=== PATIENT | male | born 2000 | race Caucasian/White ===

== ENCOUNTER 2021-03-09 00:19 | Emergency (ER) | payer SELFPAY ==
[2021-03-09 00:19] VITALS: BP 127/77; PULSE 108; RESP 18; TEMP 36.2; O2SAT 97
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
--- NOTE | 2021-03-09 01:54 | DI.VRAD_ITS ---
PROCEDURE INFORMATION: Exam: XR Right Forearm Exam date and time: 03/09/2021 12:46 AM Age: 20 years old Clinical indication: Other: Trauma TECHNIQUE: Imaging protocol: XR Right forearm. Views: 2 views. COMPARISON: No relevant prior studies available. FINDINGS: Bones/joints: Distal 3rd ulnar fracture involving the diaphysis and ulnar styloid fracture noted. The radius is intact Soft tissues: Swelling over the distal ulna IMPRESSION: Distal ulnar fractures as described. No dislocation Dictated and Authenticated by: Angelo Amanda MD. Ordering:HEVER Lopez MD
[2021-03-09] MEDS: ceFAZolin 1 GM/50 ML BAG IVPB (02:20)
[2021-03-09 02:57] VITALS: BP 127/77; PULSE 108; RESP 18; TEMP 36.2; O2SAT 97
== END 2021-03-09 03:35 | disposition home or self-care (01) ==
PROVIDERS: Emergency Provider Emergency Medicine
DX: S52.691A Other fracture of lower end of right ulna, initial encounter for closed fracture (principal); S01.01XA Laceration without foreign body of scalp, initial encounter; S51.811A Laceration without foreign body of right forearm, initial encounter; Y08.89XA Assault by other specified means, initial encounter
CPT/HCPCS: 12002; 29125; 90471; 96365; 96375; 99284; 70450; 70486; 72125; 73090; 73110; J0690

== ENCOUNTER 2021-03-13 09:37 | Outpatient (CLI) | payer SELFPAY ==
--- NOTE | 2021-03-13 09:00 | DI.RAD_ITS ---
Exam(s) XR WRIST RT LIMITED EXAM: XR WRIST RT LIMITED CLINICAL HISTORY: RIGHT ULNA FRACTURE. TECHNIQUE: 2D digital imaging was performed of the right wrist. Two views were obtained. PA and la teral views were obtained. COMPARISON: CR,XR XR WRIST RT COMPLETE from 03/09/2021 FINDINGS: BONES: There has been no change in alignment of the distal right ulnar fractures. The patient's wris t is in a cast. No bony destructive lesion is seen. JOINTS: The carpal bones are normally aligned. SOFT TISSUE: Normal. IMPRESSION: Stable right ulnar fractures. DATA REPOSITORY: RADIATION DOSE DELIVERED:
== END 2021-03-13 09:38 | disposition home or self-care (01) ==
LOC: DIORS 09:37
PROVIDERS: Visit Provider Physician Assistant
DX: S52.614A Nondisplaced fracture of right ulna styloid process, initial encounter for closed fracture; S52.691A Other fracture of lower end of right ulna, initial encounter for closed fracture
CPT/HCPCS: 73100

== ENCOUNTER 2021-03-19 11:55 | Emergency (ER) | payer SELFPAY ==
[2021-03-19 12:00] VITALS: BP 135/90; PULSE 103; RESP 16; O2SAT 100
--- NOTE | 2021-03-19 12:28 | ED.GENADUL_ITS ---
Discharge Plan Disposition Patient Disposition: HOME Condition: Good Discharge Details Clinical Impression: Encounter for staple removal Primary Care Provider: None,None ED Provider: Jose Webb Home Meds and New Rx's Prescriptions: No Action (DME) Freestyle [employer] Test Strips 1 EACH strip 1 ea AD PRN Qty: 1 RF: 12 Lantus Solostar U-100 Insulin 100 UNIT/1 ML insulin pen 20 unit SQ DAILY Qty: 1 RF: 0 NOVOLOG 100 UNIT/1 ML VIAL SQ DAILY Qty: 1 RF: 12 cephalexin 500 mg capsule 500 mg PO QID Qty: 20 RF: 0 Discharge Instructions Instructions: Acute Wound Care (ED) Additional Instructions: Please watch for any signs of infection and return immediately if they occur. Otherwise you may gently wash the wounds with mild soap and water. Discharge Data Discharge Date/Time-TO BE ENTERED AT DEPARTURE: 03/19/21 12:48 Medical Decision Making Patient presenting for staple removal. Patient states his huan have been healing well with no signs of infection, no further headache, no other complaints. Wound does not appear to be infected or dehisced and patient is otherwise stable. [place] removed by nursing staff and patient educated on acute wound care along with return and follow-up precautions as needed. HPI General Mode of arrival: ambulatory . Date/Time Provider Initiated Documentation: 03/19/21 12:01 . Limitations to Documentation: no limitations . Information obtained by: patient . History of Present Illness 20 year old M presents to the emergency department with the chief complaint of Staple Removal , Patient started experiencing this day(s) (10) Patient notes no other symptoms.. Patient did receive the following treatments prior to arrival, none Related Data Home Medications Medication Instructions Recorded Confirmed Freestyle [employer] Test Strips #1 strip 08/02/12 03/13/21 Lantus Solostar U-100 Insulin 20 unit SQ DAILY #1 pen 08/02/12 03/19/21 Novolog unit SQ DAILY #1 pen 08/02/12 03/13/21 cephalexin 500 mg PO QID #20 cap 03/09/21 03/19/21 Previous Rx's Medication Instructions Recorded cephalexin 500 mg PO QID #20 cap 03/09/21 Allergies Allergy/AdvReac Type Severity Reaction Status Date / Time No Known Allergies Allergy Unverified 03/19/21 12:04 General Stated Complaint: SutureRem CECILIA: 5 Review of Systems Constitutional Constitutional: Denies fever(s) and Denies headache(s) ENT Ears, Nose, Mouth, and Throat: Denies headache(s) Integumentary/Breasts Skin/Breast: Reports as per HPI Neurologic Neurologic: Denies headache(s) Hematologic/Lymphatic Hematologic/Lymphatic: Denies easy bleeding PFSH All Active Problems Scalp hematoma (Acute) Encounter for staple removal (Acute) Complex laceration of scalp (Acute) Right distal ulnar fracture (Acute) Laceration of forearm, right (Acute) Medical History Diabetes mellitus Surgical History No significant past surgical history Social History Smoking/Tobacco Use Status: Current every day Tobacco Type: cigarettes Smoking risk assessment performed?: Yes Alcohol Intake: current Alcohol Intake frequency: holidays/special occasions only Drug use: Occasionally Substance use type: marijuana Do you feel safe at home: Yes Do you feel safe in your relationship?: Yes Exam Const General: cooperative, comfortable and no acute distress Orientation: alert, awake and oriented x3 Resp Effort & Inspection: normal respiratory effort and able to speak in complete sentences Skin Rashes: no rashes Trauma: laceration (healing well laceration without erythema, purulence, or dehiscence.) Course Vital Signs Vital signs: Vital Signs Pulse 103 H 03/19/21 12:00 Respiratory Rate 16 03/19/21 12:00 Blood Pressure 135/90 03/19/21 12:00 Pulse Oximetry 100 03/19/21 12:00 Pulse 103 H 03/19/21 12:00 Respiratory Rate 16 03/19/21 12:00 Respiratory Effort Non-Labored 03/19/21 12:05 Blood Pressure 135/90 03/19/21 12:00 Blood Pressure Position Sitting 03/19/21 12:00 Pulse Oximetry 100 03/19/21 12:00 Oxygen Delivery Method Room Air 03/19/21 12:00 Oxygen Flow Rate 0 03/19/21 12:00 PAWSS Have you Been Recently Intoxicated or Drunk Within the Last 30 days?: No Have you Ever Experienced Previous Episodes of Alcohol Withdrawal?: No Have you ever Experienced Withdrawal Seizures?: No Have you ever Experienced Delirium Tremens(DT)s?: No Have you ever undergone Alcohol Rehabilitation Treatment (i.e, inpt ot outpatient treatment programs)?: No Have you ever Experienced Blackouts?: No Have you ever Combined Alcohol with other Downers within the last 90 days?: No Have you ever Combined Alcohol with any other Substance of Abuse during the last 90 days?: No Positive Blood Alcohol level on Presentation? [PCS.BAL]: No Evidence of Increased Autonomic Activity (i.e. HR>120, tremor, sweating, agitation, nausea)?: No Result: 0
== END 2021-03-19 12:48 | disposition home or self-care (01) ==
PROVIDERS: Emergency Provider Nurse Practitioner Family
DX: S01.01XD Laceration without foreign body of scalp, subsequent encounter (principal); X58.XXXD Exposure to other specified factors, subsequent encounter; Z48.02 Encounter for removal of sutures

== ENCOUNTER 2021-03-24 10:38 | Outpatient (CLI) | payer SELFPAY ==
--- NOTE | 2021-03-24 08:15 | DI.RAD_ITS ---
Exam(s) XR WRIST RT LIMITED EXAM: XR WRIST RT LIMITED CLINICAL HISTORY: right distal ulna fracture TECHNIQUE: COMPARISON: CR XR WRIST RT LIMITED from 03/13/2021 FINDINGS: Two views were obtained and show previous described fracture of the ulnar styloid and fracture of the distal ulnar diaphysis, alignment appears essentially unchanged comparison with prior films obtained March 13. IMPRESSION: RADIATION DOSE DELIVERED: Total DLP
== END 2021-03-24 10:39 | disposition home or self-care (01) ==
LOC: DIORS 10:38
PROVIDERS: Visit Provider Physician Assistant
DX: S52.614D Nondisplaced fracture of right ulna styloid process, subsequent encounter for closed fracture with routine healing (principal); X58.XXXD Exposure to other specified factors, subsequent encounter
CPT/HCPCS: 73100

== ENCOUNTER 2021-04-23 19:36 | Outpatient (REF) | payer MEDICAID, SELFPAY ==
[2021-04-23 19:49] LABS: Hemoglobin A1C 10.1 % (<5.7)
[2021-04-23 20:01] LABS: ALT 20 U/L (16-63); AST 9 U/L (15-37); Albumin 3.7 g/dL (3.4-5.0); Alkaline Phosphatase 95 U/L (46-116); Anion Gap 8.1 mmol/L (3-11); BUN 15 mg/dL (7-18); Bilirubin, Total 0.7 mg/dL (0.2-1.0); CO2 29.9 mmol/L (21.0-32.0); CREATININE 0.8 mg/dL (0.70-1.30); Calcium 8.8 mg/dL (8.5-10.1); Chloride 100 mmol/L (98-107); Glucose 249 mg/dL (74-106); Potassium 3.9 mmol/L (3.5-5.1); Sodium 138 mmol/L (136-145); Total Protein 6.3 g/dL (6.4-8.2)
== END 2021-04-23 19:37 | disposition home or self-care (01) ==
LOC: NCHCN 19:36
PROVIDERS: Visit Provider Nurse Practitioner Family
DX: E10.65 Type 1 diabetes mellitus with hyperglycemia (principal)
CPT/HCPCS: 80053; 83036

== ENCOUNTER 2021-04-28 10:58 | Outpatient (CLI) | payer MEDICAID, SELFPAY ==
--- NOTE | 2021-04-28 10:30 | DI.RAD_ITS ---
Exam(s) XR WRIST RT LIMITED EXAM: XR WRIST RT LIMITED CLINICAL HISTORY: f/u R distal ulna fracture. TECHNIQUE: 2D digital imaging was performed of the right wrist. Two views were obtained. PA and la teral views were obtained. COMPARISON: CR XR WRIST RT LIMITED from 03/24/2021 FINDINGS: BONES: There has been no change in alignment of the fractures involving the ulnar styloid process or distal ulnar diaphysis. There is callus formation about the distal ulnar fracture consistent with so me interval healing. No new fracture or dislocation is present. No bony destructive lesion is seen. JOINTS: The carpal bones are normally aligned. SOFT TISSUE: Normal. IMPRESSION: Stable distal ulnar fractures. DATA REPOSITORY: RADIATION DOSE DELIVERED:
== END 2021-04-28 10:59 | disposition home or self-care (01) ==
LOC: DIORS 10:58
PROVIDERS: Visit Provider Student in an Organized Health Care Education/Training Program
DX: S52.614D Nondisplaced fracture of right ulna styloid process, subsequent encounter for closed fracture with routine healing (principal); X58.XXXD Exposure to other specified factors, subsequent encounter
CPT/HCPCS: 73100

== ENCOUNTER 2021-06-11 10:09 | Outpatient (CLI) | payer MEDICAID, SELFPAY ==
--- NOTE | 2021-06-11 08:45 | DI.RAD_ITS ---
Exam(s) XR WRIST RT LIMITED EXAM: XR WRIST RT LIMITED CLINICAL HISTORY: f/u R DISTAL ULNA FRACTURE. TECHNIQUE: 2D digital imaging was performed. COMPARISON: CR XR WRIST RT LIMITED from 04/28/2021 FINDINGS: Two views There has been further healing of the transverse fracture in the distal 3rd of the radius. Fracture line is still evident but there is further callus formation. Fractured ulnar styloid appears unchang ed. IMPRESSION: DATA REPOSITORY: RADIATION DOSE DELIVERED:
== END 2021-06-11 10:10 | disposition home or self-care (01) ==
LOC: DIORS 10:09
PROVIDERS: PCP Internal Medicine; Visit Provider Student in an Organized Health Care Education/Training Program
DX: S52.614D Nondisplaced fracture of right ulna styloid process, subsequent encounter for closed fracture with routine healing (principal); X58.XXXD Exposure to other specified factors, subsequent encounter
CPT/HCPCS: 73100

== ENCOUNTER 2021-07-07 11:48 | Emergency (ER) | payer MEDICAID, SELFPAY ==
[2021-07-07 12:24] VITALS: BP 128/81; PULSE 116; RESP 16; TEMP 38; O2SAT 98
--- NOTE | 2021-07-07 14:58 | NUR.NOTE ---
left without being seen.Nursing Note:
== END 2021-07-07 15:00 ==
PROVIDERS: PCP Internal Medicine
DX: Z53.21 Procedure and treatment not carried out due to patient leaving prior to being seen by health care provider (principal)

== ENCOUNTER 2021-07-14 17:16 | Outpatient (REF) | payer MEDICAID, SELFPAY ==
[2021-07-14 23:53] LABS: COMMENT (LAB VIEW ONLY) 90.66 mg/dL; Microalb ug/mg Crea 8.3 ug/mg Cr
== END 2021-07-14 17:17 | disposition home or self-care (01) ==
LOC: NCHCN 17:16
PROVIDERS: PCP Internal Medicine; Visit Provider Nurse Practitioner Family
DX: E10.9 Type 1 diabetes mellitus without complications (principal); Z79.4 Long term (current) use of insulin
CPT/HCPCS: 82043; 82570